=== PATIENT | male | born 1990 | race African-American/Black ===

== ENCOUNTER 2024-04-11 10:37 | Emergency (ER) | payer SELFPAY ==
[~2024-04-11] VITALS: Ht 165.1 cm; Wt 77.3 kg
[2024-04-11] MEDS ORDERED: VALTREX1000 MG PO (11:12)
[2024-04-11 11:32] VITALS: PULSE 74; RESP 16; TEMP 98.7; O2SAT 99
== END 2024-04-11 11:32 | disposition home or self-care (01) ==
LOC: FSED 10:41
DX: A60.01 Herpesviral infection of penis (principal)
CPT/HCPCS: 99283